=== PATIENT | female | born 1965 | race Caucasian/White ===

== ENCOUNTER → 2024-04-29 15:19 | Outpatient (REF) | payer OTHER, SELFPAY | LOC: WDC 15:19 | PROVIDERS: ATTENDING PHYSICIAN Obstetrics & Gynecology | DX: Z12.31 Encounter for screening mammogram for malignant neoplasm of breast (principal) | CPT/HCPCS: 77063; 77067 ==

== ENCOUNTER → 2024-10-26 08:09 | Outpatient (REF) | payer OTHER, SELFPAY | LOC: HWRAD 08:09 | PROVIDERS: ATTENDING PHYSICIAN Physician Assistant | DX: Z87.891 Personal history of nicotine dependence (principal) | CPT/HCPCS: 71271 ==

== ENCOUNTER 2025-04-26 15:50 | Emergency (ER) | payer OTHER, SELFPAY ==
[2025-04-26 16:02] VITALS: BP 116/78
[2025-04-26 16:28] LABS: % Basophils 0.6 % (0-2); % Eosinophils 2.2 % (0-6); % Immature Granulocytes 0.3 % (0-0.5); % Lymphocytes 22.2 % (20.5-51.1); % Monocytes 10.3 % (1.7-9.3); % Neutrophils 64.4 % (42.2-75.2); Absolute Basophils 0.1 10^3/uL (0-0.2); Absolute Eosinophils 0.2 10^3/uL (0-0.7); Absolute Lymphocytes 2.1 10^3/uL (1.2-3.4); Absolute Neutrophils 6.1 10^3/uL (1.4-6.5); Hematocrit 38.3 % (37.0-47.0); Hemoglobin 13.2 g/dL (12.0-16.0); Mean Corp Hgb Conc. 34.5 g/dL (33.0-37.0); Mean Corpuscular Hgb 31.5 pg (27.0-31.0); Mean Corpuscular Volume 91.4 fL (81.0-99.0); Mean Platelet Volume 9.2 fL (7.4-10.4); Nucleated Red Blood Cells % 0 %; Platelet Count 257 10^3/uL (130-400); Red Blood Cell Count 4.19 10^6/uL (4.20-5.40); Red Cell Dist. Width 13.2 % (11.5-14.5); White Blood Cell Count 9.5 10^3/uL (4.8-10.8)
[2025-04-26 16:39] LABS: INR 0.98; PT 13.3 Sec (11.4-14.6)
[2025-04-26 16:42] LABS: ALT (SGPT) 15 U/L (0-35); AST (SGOT) 18 U/L (14-36); Albumin 4.4 g/dl (3.5-5.0); Alkaline Phosphatase 98 U/L (38-126); Blood Urea Nitrogen 10 mg/dl (7-17); Calcium 9.2 mg/dl (8.4-10.2); Carbon Dioxide 26 mmol/L (22-30); Chloride 105 mmol/L (98-107); Glucose 89 mg/dl (70-99); Potassium 3.8 mmol/L (3.5-5.1); Sodium 138 mmol/L (135-145); Total Bilirubin 0.5 mg/dl (0.2-1.3); Total Protein 7.2 g/dl (6.3-8.2); eGFR > 60.00
[2025-04-26 16:53] LABS: Troponin I < 0.012 ng/ml
--- NOTE | 2025-04-26 17:46 | ED.GENMED ---
History of Present Illness
General
Chief Complaint: Breathing Problem
Source: patient and spouse
Exam Limitations: none
Time Seen by Provider: 04/26/25 17:27
Nursing documentation reviewed up to this point in time: agreed with
History of Present Illness
History of Present Illness:
60-year-old female with a past medical history of breast cancer status post chemoradiation in remission x 5 years who presents to the emergency department for evaluation of chest pain. Patient reports onset of symptoms around 9 PM while at rest
last night that she describes 'stitch' in the left side of her chest. She says she initially had symptoms on the right side of her chest as well that seem to be worse when she was lying a certain way. This morning she woke up and right sided pain
had resolved but she continues to have some pain on the left side. It seems to be worse when she takes a deep breath. No clear relieving factors noted. She denies any associated shortness of breath. She denies any swelling or pain in the legs.
She denies any recent cough, fevers, chills or URI symptoms. She has never had similar symptoms in the past. She does note that she recently returned to the last week from a trip to [facility] reports the flight was approximately 5 hours.
Past History
Past History
ED Past Medical History: Cancer (Breast cancer, left)
ED Past Surgical History: Gynecological and Other (Lumpectomy, left)
Social History
Tobacco: Non-smoker
Alcohol: None
Drug: None
Personal:
Living: with family
Employment: Employed
Review of Systems
Review of Systems
All Other Systems: ROS reviewed and negative except as documented in HPI and ROS
Constitutional: Denies fever
Respiratory: Denies cough or trouble breathing
Cardiac: Reports chest pain; Denies palpitations
ABD/GI: Denies abdominal pain, nausea or vomiting
: Denies dysuria or flank pain
Musculoskeletal: Denies neck pain or back pain
Neurological: Denies dizzy or headache
Phy Exam
Physical Exam
Physical Exam:
General: Awake, alert, oriented x3; no acute distress
Head: Normocephalic, atraumatic
Eyes: Conjunctiva normal, sclera anicteric
Throat: Airway intact, handling secretions
Neck: Trachea midline, supple without meningismus
Lungs: Clear to auscultation bilaterally, no wheezing, rales, rhonchi
Heart: Regular rate and rhythm, no murmurs, gallops, or rubs
Chest wall: No erythema, bruising, rash noted; no chest wall tenderness or breast masses appreciated
Abd: Soft, non distended, nontender
Back: No CVA tenderness
Neuro: No gross substance
Skin: no rash in area of concern
Extremities: No edema in extremities, no calf tenderness, equal pulses in all extremities
Scores
Heart Failure Risk
Heart Failure Risk Score: Not Applicable
Heart Score for Chest Pain Patients
STEMI patient?: Not applicable
Withdrawal Assessment of Alcohol
Withdrawal Assessment Completed?: Not applicable
Course
Orders/Labs/Results
Orders:
Orders
04/26/25 15:52
EKG [Electrocardiogram (*1)] Urgent
Reason for Study: Shortness of Breath
EKG- Treatment ONCE
04/26/25 16:06
CR Chest - 2 Views Urgent
Comment:
Reason For Exam: SOB
04/26/25 16:18
Complete Blood Count/With Diff Urgent
Comprehensive Metabolic Panel Urgent
Prothrombin Time Urgent
Troponin I Urgent
04/26/25 17:34
CT Chest PE Study Urgent
Comment:
Reason For Exam: CP, SOB
Abnormal Lab Results
04/26/25
16:18
RBC 4.19 L 10^6/uL
(4.20-5.40)
MCH 31.5 H pg
(27.0-31.0)
Absolute Monos (auto) 1.0 H 10^3/uL
(0.1-0.6)
Monocytes % 10.3 H %
(1.7-9.3)
04/26/25 16:18
04/26/25 16:18
Vital Signs
Initial and Last Documented VS:
Initial Vital Signs
Temp Pulse Resp BP Pulse Ox
37.1 C 89 17 116/78 99
04/26/25 16:02 04/26/25 16:02 04/26/25 16:02 04/26/25 16:02 04/26/25 16:02
Last Documented Vital Signs
Temp Pulse Resp BP Pulse Ox
37.1 C 60 18 126/98 95
04/26/25 16:02 04/26/25 19:43 04/26/25 19:43 04/26/25 18:01 04/26/25 19:42
MDM/Problems Addressed
Differential Diagnosis Includes:
Costochondritis, pleurisy, pneumothorax, pneumonia, pulmonary embolism, pericarditis, ACS considered less likely clinically, GERD
MDM/Problems Addressed:
60-year-old female presents with chest pain that started last night and has been constant since that time. She reports sharp pain left chest worse with breathing. She did have recent long flight to [place]. Fortunately vital signs are normal.
Physical exam as above. EKG shows no acute ischemia. Her labs from triage were reviewed: CBC and CMP no clinically significant abnormalities. Her troponin is undetectable and with constant symptoms since last night this is sufficient to rule out
acute [place]. Chest x-ray reviewed by me shows no acute disease. Will plan for a CT chest to rule out pulmonary embolism. Will reassess after the above.
CT chest shows no pulmonary embolism. There is a trace left pleural effusion of unclear clinical significance. This could be contributing to her pleuritic pain, or she could have pain from costochondritis�her is at bedside he says that she
was doing some chores yesterday/yard work and certainly chest wall pain could be related to this. I think she is stable for discharge can follow-up with her primary care physician. Provided copy of CT report to follow-up with. Patient feels
comfortable this plan. Spoke about return precautions all questions answered.
*Radiology
Radiology exam reviewed: preliminary read by ED provider and radiology read reviewed
*Pulse Oximetry
Patient hypoxic: no
*EKG
Interpreted by ED Provider?: Yes
Heart Rate: 80
Rate: normal
Rhythm: sinus
Carpenter: normal axis
Interval: normal interval
QRS Pattern: normal QRS
Ischemia: no ischemia
*Critical Care Note
Total Time (30-74mins, 75-104mins- exclusive of procedures): Not Applicable
Data Reviewed
Review of Other/Old Records Reveals: Labs and Records
Source: patient, records and spouse
ED Attending Note
-
Portions of this chart may have been created with voice recognition software.� Occasional wrong word or��sound alike� substitutions may have occurred due to the inherent limitations of voice recognition software.
Discharge Plan
Departure
Patient Disposition: Home (Routine Discharge)
Date of Disposition: 04/26/25
Time of Disposition: 19:55
Patient with high blood pressure during this ER visit?: No
Discharge Problem:
Chest wall pain, Pleural effusion
Instructions: Costochondritis
Prescriptions:
No Action
letrozole 2.5 MG tablet
2.5 mg PO DAILY
acetaminophen 325 MG tablet
650 mg PO Q4HPRN PRN (Reason: mild pain/ARNOLD/temp> 100.4F) 0RF
amoxicillin-pot clavulanate 1 TABLET tablet
1 tab PO Q12 Qty: 24 0RF
Rx Instructions:
Please take one tablet twice a day for 12 days.
ondansetron HCl 4 MG tablet
4 mg PO Q8HPRN PRN (Reason: Nausea) Qty: 36 0RF
pantoprazole 40 MG tablet,delayed release (DR/EC)
40 mg PO DAILY Qty: 30 0RF
Lactobacillus acidophilus [Acidophilus] 1 EACH capsule
1 ea PO DAILY Qty: 30 0RF
gabapentin 300 MG capsule
300 mg PO HS Qty: 30 0RF
Rx Instructions:
may increase to twice daily as needed
Referrals:
UNKNOWN - PT DOES,NOT KNOW [Unknown Provider]
Activity Restrictions/Additional Instructions:
Thank you for visiting the Emergency Department at [facility].
1. Please schedule a follow up appointment as directed. Call first thing tomorrow morning to make an appointment.
2. If indicated, please take your medications as instructed and indicated on discharge paperwork.
3. If any of your symptoms do not improve, or persist, or become more severe within 6-12 hours, please return to the emergency department for further care.
4. Please return to the emergency department if you develop a headache, neck pain/stiffness, fever greater than 100.4F, chest pain, shortness of breath, persistent nausea, vomiting, slurred speech, difficulty walking, numbness/tingling, weakness,
signs of infection or any other symptoms that are worrisome to you.
Please call [phone] if you have any questions.
Interventions
Interventions:
*Risk Screen - Suicide Last Done: 04/26/25 16:05
*General Assessment Last Done: 04/26/25 16:05
*Neglect/Abuse Screening Last Done: 04/26/25 16:05
*ED COVID-19 Vaccine History Last Done: 04/26/25 16:05
ED- Cardiac Assessment Last Done: 04/26/25 18:01
ED- Pulmonary Assessment Last Done: 04/26/25 18:04
Discharge Date and Time
Print Language: BRITISH
[2025-04-26 17:56] VITALS: BP 109/70
[2025-04-26 18:00] VITALS: BP 126/98
[2025-04-26 18:01] VITALS: BP 126/98; BMI 26.9
[2025-04-26 19:57] VITALS: BP 105/69
== END 2025-04-26 20:27 | disposition home or self-care (01) ==
LOC: EMR 15:50
PROVIDERS: Emergency Medicine; EMERGENCY PHYSICIAN Emergency Medicine; FAMILY PHYSICIAN Family Medicine
DX: R07.89 Other chest pain (principal); J90 Pleural effusion, not elsewhere classified; Z85.3 Personal history of malignant neoplasm of breast; Z92.21 Personal history of antineoplastic chemotherapy; Z92.3 Personal history of irradiation
CPT/HCPCS: 99284; 71046; 71275; 80053; 84484; 85025; 85610; 93005; Q9967

== ENCOUNTER → 2025-05-03 07:09 | Outpatient (REF) | payer OTHER, SELFPAY | LOC: WDC 07:09 | PROVIDERS: ATTENDING PHYSICIAN Obstetrics & Gynecology; FAMILY PHYSICIAN Family Medicine | DX: Z12.31 Encounter for screening mammogram for malignant neoplasm of breast (principal) | CPT/HCPCS: 77063; 77067 ==

== ENCOUNTER 2025-08-22 06:39 | Day surgery (SDC) | payer OTHER, SELFPAY | END 2025-08-22 09:52 | disposition home or self-care (01) | LOC: GI 06:39 | PROVIDERS: ATTENDING PHYSICIAN Internal Medicine Gastroenterology | DX: Z12.11 Encounter for screening for malignant neoplasm of colon (principal); K57.30 Diverticulosis of large intestine without perforation or abscess without bleeding; K64.8 Other hemorrhoids; D12.5 Benign neoplasm of sigmoid colon; K63.89 Other specified diseases of intestine; Z86.0100 Personal history of colon polyps, unspecified | CPT/HCPCS: 45380; 88305 ==